=== PATIENT | female | born 1995 | race Caucasian/White ===

== ENCOUNTER 2018-06-12 16:46 | Emergency (ER) | payer OTHER ==
[~2018-06-12] VITALS: Ht 157.5 cm; Wt 59.0 kg
--- NOTE | 2018-06-12 16:54 | NUR ---
PT AMBULATED TO ER CHAIR E
[2018-06-12 16:55] VITALS: BP 148/59
--- NOTE | 2018-06-12 17:02 | NUR ---
PT TO RADIOLOGY VIA
--- NOTE | 2018-06-12 17:07 | NUR ---
PT RETURNED FROM RADIOLOGY
[2018-06-12] MEDS: KETOROLAC 60 MG/2 ML VIAL IM ONE ×2 (17:13→17:20)
--- NOTE | 2018-06-12 17:57 | NUR ---
ADMITS PAIN HAS IMPROVED S/P TORADOL IM
[2018-06-12 18:03] VITALS: BP 117/69
== END 2018-06-12 18:04 | disposition home or self-care (01) ==
LOC: MED 16:46
DX: R07.89 Other chest pain (principal); W50.1XXA Accidental kick by another person, initial encounter; Y93.89 Activity, other specified; Y92.89 Other specified places as the place of occurrence of the external cause; Y99.8 Other external cause status
CPT/HCPCS: 71046; 96372; 99284; J1885

== ENCOUNTER 2018-08-08 20:34 | Emergency (ER) | payer OTHER ==
[~2018-08-08] VITALS: Ht 157.5 cm; Wt 59.0 kg
[2018-08-08 20:36] VITALS: BP 123/69
--- NOTE | 2018-08-08 20:36 | NUR ---
AMBULATED TO ER BED 12
--- NOTE | 2018-08-08 20:38 | NUR ---
22/F CAME IN W C/O SHARP EPIGASTRIC PAIN NONRADIATING X 2 DAYS. REPORTS NAUSEA. MUNDO V/D, FEVER/CHILLS. ABD SOFT, ROUND, -TENDERNESS, BS ACTIVE X 4. DENIES PMH, TOOK PEPTO BISMOL WITHOUT RELIEF
[2018-08-08] MEDS ORDERED: ONDANSETRON 4 MG/2 ML VIAL IVP ONE (21:00)
[2018-08-08] MEDS ORDERED: NACL 0.9% 1,000 ML IV ONE (21:00)
[2018-08-08] MEDS ORDERED: KETOROLAC 30 MG/ML VIAL IVP ONE (21:00)
[2018-08-08 21:25] LABS: BASOPHILS % (AUTO) 0.3 % (0.0-2.0); EOSINOPHILS % (AUTO) 0.7 % (0.0-4.0); HEMOGLOBIN 13.8 g/dL (12.0-16.0); LYMPHOCYTES # (AUTO) 0.6 K/uL (2.5-16.5); LYMPHOCYTES % (AUTO) 9.9 % (20.5-51.1); MEAN CORPUSCULAR HEMOGLOBIN 27 pg (27-31); MEAN CORPUSCULAR HGB CONC 33 g/dL (33-37); MEAN CORPUSCULAR VOLUME 81.6 fL (80-94); MONOCYTES # (AUTO) 0.6 K/uL (0.8-1.0); MONOCYTES % (AUTO) 8.8 % (1.7-9.3); NEUTROPHILS # (AUTO) 5.1 K/uL (1.8-7.7); NEUTROPHILS % (AUTO) 80.3 % (42.2-75.2); PLATELET COUNT (AUTO) 255 K/uL (140-450); RED BLOOD CELL COUNT(AUTO) 5.15 MIL/uL (4.20-5.40); RED CELL DISTRIBUTION WIDTH 12.8 % (11.6-13.7); WHITE BLOOD COUNT (AUTO) 6.4 K/uL (4.8-10.8)
[2018-08-08 21:39] LABS: ANION GAP 13.2 (8-16); CARBON DIOXIDE 27.5 mmol/L (21-32); CREATININE 0.9 mg/dL (0.6-1.3); POTASSIUM 3.7 mmol/L (3.5-5.1)
[2018-08-08 21:45] LABS: ALBUMIN 4.5 g/dL (3.4-5.0); TOTAL BILIRUBIN 0.5 mg/dL (0.0-1.0)
--- NOTE | 2018-08-08 22:11 | NUR ---
Patient discharged with v/s stable. Written and verbal after care instructions given and explained. Patient alert, oriented and verbalized understanding of instructions. Ambulatory with steady gait. All questions addressed prior to discharge. ID band removed. Patient advised to follow up with PMD. Rx of ZOFRAN ODT, NEXIUM given. Patient educated on indication of medication including possible reaction and side effects. Opportunity to ask questions provided and answered. IV removed, catheter intact and site benign. Applied folded 4x4 gauze and tape to stop bleeding.
[2018-08-08 22:15] VITALS: BP 104/56
== END 2018-08-08 22:11 | disposition home or self-care (01) ==
LOC: MED 20:34
DX: K29.70 Gastritis, unspecified, without bleeding (principal)
CPT/HCPCS: 36415; 76705; 80053; 81002; 81025; 83690; 85025; 96374; 96375; 99284; J1885; J2405; J7030; Q0092